=== PATIENT | female | born 1985 | race Caucasian/White ===

== ENCOUNTER 2020-04-26 23:01 | Emergency (ER) | payer BC, SELFPAY ==
[2020-04-26 23:02] VITALS: BP 121/80; PULSE 68; RESP 14; TEMP 36.7; O2SAT 98; BMI 24.0
--- NOTE | 2020-04-26 23:05 | CT_ITS ---
PROCEDURE: CT ANGIO CHEST CLINCIAL INDICATION: Trauma w/ LOC Blunt trauma with injury and pain, contusion/abrasion or hematoma following injury COMPARISON: No exams were available for comparison TECHNIQUE: IV Contrast: 70ML OPTIRAY 350 Axial images obtained with sagittal and coronal reformats. All CT scans at the facility use one or more dose reduction, viz: automated exposure control, ma/kV adjustment per patient size (including targeted exams where dose is matched to indication, i.e. head), or iterative reconstruction technique. FINDINGS: HEART AND MEDIASTINAL STRUCTURES: No mediastinal or hilar mass. No evidence mediastinal hematoma. No evidence of aortic dissection or pseudo aneurysm or aneurysm. LUNGS AND PLEURAL SPACES: Unremarkable. BONY STRUCTURES: No acute bony abnormalities apparent. UPPER ABDOMEN: Unremarkable. ADDITIONAL FINDINGS: No other significant abnormalities. IMPRESSION: No acute finding Dictated by: Rhett Babin MD 04/27/2020 06:38 Rhett Babin MD in [facility] 04/27/2020 06:38
--- NOTE | 2020-04-26 23:05 | CT_ITS ---
PROCEDURE: CT ABDOMEN PELVIS W CON CLINICAL INDICATION: Trauma w/ LOC Blunt trauma with injury and pain, contusion/abrasion or hematoma following injury, right-sided pain COMPARISON: CT CT ABDOMEN PELVIS W CON from 11/18/[address] ANGIO CHEST from 04/26/2020 TECHNIQUE: IV Contrast: 75ML OPTIRAY 350 Oral Contrast None Axial images obtained with sagittal and coronal reformats. All CT scans at the facility use one or more dose reduction, viz: automated exposure control, ma/kV adjustment per patient size (including targeted exams where dose is matched to indication, i.e. head), or iterative reconstruction technique. FINDINGS: LOWER THORAX: No acute finding ABDOMEN & PELVIS: The liver spleen pancreas adrenal glands and kidneys have an unremarkable appearance. No renal or ureteral calculi. No hydronephrosis. No intestinal obstruction or free air. There is mild nonspecific thickening of the distal esophagus. There mild amount retained colonic feces. Minimal amount of fluid noted within the pelvis. Small left ovarian cyst at 13 mm. No acute bony anomaly IMPRESSION: No acute finding Dictated by: Rhett Babin MD 04/27/2020 06:42 Rhett Babin MD in [facility] 04/27/2020 06:42
--- NOTE | 2020-04-26 23:05 | CT_ITS ---
PROCEDURE: CT LUMBAR SPINE WO CON CLINICAL HISTORY: Trauma w/ LOC Back injury with pain, horse fell on patient. Blunt trauma with injury and pain, contusion/abrasion or hematoma following injury COMPARISON: No exams were available for comparison TECHNIQUE: Axial images obtained with sagittal and coronal reformats. All CT scans at the facility use one or more dose reduction, viz: automated exposure control, ma/kV adjustment per patient size (including targeted exams where dose is matched to indication, i.e. head), or iterative reconstruction technique. FINDINGS: Normal alignment. No fracture or dislocation. The disc spaces are well preserved. Mild bulging disc noted at L4-5. Small sclerotic focus is present involving the left and posterior aspect of the L5 vertebral body and the superior endplate of L2 which may be due to bone islands. IMPRESSION: No acute finding Dictated by: Rhett Babin MD 04/27/2020 06:35 Rhett Babin MD in [facility] 04/27/2020 06:35
--- NOTE | 2020-04-26 23:05 | CT_ITS ---
PROCEDURE: CT HEAD/BRAIN WO CON CLINICAL INDICATION: Trauma w/ LOC Head injury with headache/pain, contusion, abrasion or hematoma, loss of consciousness COMPARISON: No exams were available for comparison TECHNIQUE: Axial images obtained. All CT scans at the facility use one or more dose reduction, viz: automated exposure control, ma/kV adjustment per patient size (including targeted exams where dose is matched to indication, i.e. head), or iterative reconstruction technique. FINDINGS: No midline shift, mass effect, intracranial hemorrhage, hydrocephalus, or extra-axial fluid collection is evident. There are few scattered areas of decreased density in the periventricular and sub cortical white matter noted in the left and right parietal occipital region and right parietal area. The calvarium has an unremarkable appearance. No mastoid effusion. No sinus air-fluid level. IMPRESSION: 1. No acute intracranial finding. 2. Scattered small areas of decreased attenuation in the white matter. Differential diagnosis would include ischemic gliotic foci or demyelinating process such as multiple sclerosis. Consider nonemergent MRI further evaluation.. Dictated by: Rhett Babin MD 04/27/2020 06:27 Rhett Babin MD in [facility] 04/27/2020 06:27
--- NOTE | 2020-04-26 23:05 | CT_ITS ---
PROCEDURE: CT THORACIC SPINE WO CON CLINICAL HISTORY: Trauma w/ LOC Back pain following injury COMPARISON: No exams were available for comparison TECHNIQUE: Axial images obtained with sagittal and coronal reformats. All CT scans at the facility use one or more dose reduction, viz: automated exposure control, ma/kV adjustment per patient size (including targeted exams where dose is matched to indication, i.e. head), or iterative reconstruction technique. FINDINGS: Normal alignment. Mild midthoracic curvature convex right. No acute fracture or dislocation. IMPRESSION: No acute finding Dictated by: Rhett Babin MD 04/27/2020 06:32 Rhett Babin MD in [facility] 04/27/2020 06:32
--- NOTE | 2020-04-26 23:05 | XR_ITS ---
PROCEDURE: XR CHEST AP CLINICAL HISTORY: Horse fell on PT Blunt trauma with injury and pain, contusion/abrasion or hematoma following injury COMPARISON: No exams were available for comparison FINDINGS: The cardiomediastinal silhouette and pulmonary vascularity are within normal limits. The lungs are clear without infiltrates, suspicious nodules, or pleural effusions. No acute bony abnormalities. IMPRESSION: No acute findings. Dictated by: Rhett Babin MD 04/27/2020 07:14 Rhett Babin MD in [facility] 04/27/2020 07:14
--- NOTE | 2020-04-26 23:05 | XR_ITS ---
PROCEDURE: XR PELVIS 1-2V CLINICAL INDICATION: Horse Blunt trauma with injury and pain, contusion/abrasion or hematoma following injury, trauma protocol, trauma alert COMPARISON: No exams were available for comparison TECHNIQUE: XR Pelvis AP View FINDINGS: No fracture or dislocation is evident. No significant degenerative change. No lytic or blastic change. IMPRESSION: No acute findings. Dictated by: Rhett Babin MD 04/27/2020 07:15 Rhett Babin MD in [facility] 04/27/2020 07:15
--- NOTE | 2020-04-26 23:05 | CT_ITS ---
PROCEDURE: CT CERVICAL SPINE WO CON CLINICAL INDICATION: Trauma w/ LOC Neck injury with pain, contusion/abrasion or hematoma, cervical sprain/strain the COMPARISON: No exams were available for comparison TECHNIQUE: Axial images obtained with sagittal and coronal reformats. All CT scans at the facility use one or more dose reduction, viz: automated exposure control, ma/kV adjustment per patient size (including targeted exams where dose is matched to indication, i.e. head), or iterative reconstruction technique. Axial spiral CT scanning performed of the cervical spine beginning at the base of the skull and continuing to the upper T-spine. 3-D multiplanar reconstruction with 3-D manipulation of volumetric data set in image rendering was completed by the radiologist and/or technologist with the supervision of the radiologist on independent workstation. FINDINGS: No fracture nor subluxation is evident. Normal prevertebral soft tissues. Facets, neural foramen and vertebral bodies intact and unremarkable. Normal C1/C2 relationships. Apices of lungs are clear with no acute findings. There is minimal ossification of posterior longitudinal ligament at C3-C4. Scattered small nodes are present in the neck. IMPRESSION: No acute finding. Dictated by: Rhett Babin MD 04/27/2020 06:29 Rhett Babin MD in [facility] 04/27/2020 06:29
[2020-04-26 23:13] LABS: Basophils # 0.1 K/mm3 (0-0.2); Basophils % 0.5 % (0.1-2.0); Eosinophils # 0.5 K/mm3 (0.0-0.4); Eosinophils % 3.9 % (0.1-12.0); Hematocrit 41.4 % (37.0-47.0); Hemoglobin 14.1 g/dL (12.2-16.2); Lymphocytes # 3.8 K/mm3 (0.7-4.5); Lymphocytes % 31.6 % (10-50); Mean Corpuscular HGB Conc 33.9 g/dL (31.8-35.4); Mean Corpuscular Hemoglobin 29.2 pg (27.0-31.2); Mean Corpuscular Volume 86.1 fl (81-99); Mean Platelet Volume 9.2 fl (7.4-10.4); Monocytes # 0.5 K/mm3 (0.1-1.0); Monocytes % 4.4 % (1.7-9.3); Neutrophils # 7.2 K/mm3 (1.8-7.8); Neutrophils % 59.7 % (37.0-80.0); Platelet Count 230 K/mm3 (142-424); Red Blood Count 4.81 M/mm3 (4.20-5.40); Red Cell Distribution Width 12.7 % (11.5-17.5)
[2020-04-26 23:17] LABS: Chloride 102 mmol/L (98-107); Sodium 138 mmol/L (136-145)
[2020-04-26 23:19] LABS: Alanine Aminotransferase 20 U/L (12-78); Aspartate Amino Transferase 29 U/L (14-36); Blood Urea Nitrogen 15 mg/dl (7-17); Creatinine Clearance Estimated 115 mL/min (50-200); Estimated Glomerular Filt Rate 96 ml/min (>60); GFR (African American) 117 ML/MIN (>60)
[2020-04-26 23:20] LABS: Albumin Level 4.6 g/dl (3.5-5.0); Albumin/Globulin Ratio 1.3 (1.1-1.8); Alkaline Phosphatase 63 U/L (38-126); Bilirubin,Total 0.6 mg/dl (0.2-1.3); Calcium 9.9 mg/dl (8.4-10.2); Carbon Dioxide 27 mmol/L (22.0-30.0); Globulin 3.5 g/dL (1.3-3.2); Glucose 134 mg/dl (74-100); Total Protein,Serum 8.1 g/dl (6.3-8.2)
--- NOTE | 2020-04-26 23:21 | PC.NURSE ---
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 Pt was undressed and no deformities or bleeding noted, C-Collar placed on pt on arrival. Pt AA&O x 3 PERRL 4mm, no tenderness along spine, S1 S2 audible, Lung sounds CTA throughout, Bowel sounds auscultated and abd non-tender to palpation. No pain to pelvis or extremities, Pt able to move all ext, denies numbness or tingling. Pulses palpable in all 4 ext.
[2020-04-26 23:29] LABS: HCG Qualitative, Serum Negative (Negative)
--- NOTE | 2020-04-26 23:34 | [facility]H.EDTRAUMA ---
ED Disposition Clinical Impression: Trauma Chest wall contusion Qualifiers: Encounter type: initial encounter Laterality: right Qualified Code(s): S20.211A - Contusion of right front wall of thorax, initial encounter Concussion Qualifiers: Encounter type: initial encounter Loss of consciousness presence/duration: with LOC of 30 min or less Qualified Code(s): S06.0X1A - Concussion with loss of consciousness of 30 minutes or less, initial encounter Disposition: Home, Self-Care Condition on Discharge: Good Instructions: DI for Concussion Additional Instructions: fluids and see pcp for follow up Referrals: Provider,Referral, MD [Primary Care Provider] - - Critical Care Critical Care Time: No Attestation: On 04/26/20, the high probability of a clinically significant, sudden or life threatening deterioration of the following system(s) required my full and direct attention, intervention and personal management. The time I documented below is in addition to time spent performing reported procedures but includes the following listed in this critical care notation. Medical Decision Making - Medical Records Medical records reviewed: Yes: I reviewed the patient's medical records. - Aric Inquiry Pt receiving controlled substance: No Vital Signs: 04/26/20 23:02 Temperature 98.1 F Temperature Source Oral Pulse Rate [Right] 68 Respiratory Rate 14 Blood Pressure [Right Arm] 121/80 Blood Pressure Mean [Right Arm] 93 Blood Pressure Source [Right Arm] Manual Cuff/ Auscultation Blood Pressure Position [Right Arm] Supine 02 Sat by Pulse Oximetry 98 Oxygen Delivery Method Room Air - Lab Data Lab results reviewed: Yes: I reviewed the patient's lab results. Lab Results 04/26/20 23:00: WBC 12.0 H, RBC 4.81, Hgb 14.1, Hct 41.4, MCV 86.1, MCH 29.2, MCHC 33.9, RDW 12.7, Plt Count 230, MPV 9.2, Neut % (Auto) 59.7, Lymph % (Auto) 31.6, [place] % (Auto) 4.4, Eos % (Auto) 3.9, Baso % (Auto) 0.5, Neut # (Auto) 7.2, Lymph # (Auto) 3.8, [place] # (Auto) 0.5, Eos # (Auto) 0.5 H, Baso # (Auto) 0.1 04/26/20 23:00: Sodium 138, Potassium 4.0, Chloride 102, Carbon Dioxide 27, Anion Gap 13.0, BUN 15, Creatinine 0.70, Estimated Creat Clear 115, Estimated GFR 96, Est GFR ( Amer) 117, Glucose 134 H, Calcium 9.9, Total Bilirubin 0.6, AST 29, ALT 20, Alkaline Phosphatase 63, Total Protein 8.1, Albumin 4.6, Globulin 3.5 H, Albumin/Globulin Ratio 1.3 04/26/20 23:00: Serum HCG, Qual Negative Result diagrams: 04/26/20 23:00 04/26/20 23:00 Orders (Tests/Meds): ED MEDICATIONS Generic Name Dose Route Start Last Admin Trade Name Freq PRN Reason Stop Dose Admin Sodium Chloride 1,000 mls @ 999 mls/hr 04/26/20 23:15 04/26/20 23:44 Sod Chlor 0.9% 1000ml Bag IV 04/27/20 00:15 999 mls/hr .Q1H1M GEOVANY Administration Discontinued Medications Generic Name Dose Route Start Last Admin Trade Name Freq PRN Reason Stop Dose Admin Ioversol 100 ml 04/27/20 00:12 04/27/20 00:16 Rad-Optiray 350 100ml Vial IV 04/27/20 00:13 100 ml ONCE ONE Administration Protocol Ketorolac Tromethamine 30 mg 04/26/20 23:05 04/26/20 23:44 Toradol 30mg/Ml Vial IV 04/26/20 23:06 30 mg ONCE ONE Administration Ondansetron HCl 4 mg 04/26/20 23:05 04/26/20 23:44 Zofran 4mg/2ml Vial IV 04/26/20 23:06 4 mg ONCE ONE Administration Sodium Chloride 40 ml 04/27/20 00:12 04/27/20 00:16 Rad-Ns 50ml Vial IV 04/27/20 00:13 40 ml ONCE ONE Administration Sodium Chloride 10 ml 04/27/20 00:12 04/27/20 00:16 Rad-Saline Flush 10ml Syringe IV 04/27/20 00:13 10 ml ONCE ONE Administration ORDERS Category Date Time Status CT abdomen pelvis w con Stat Cat Scan 04/26/20 23:[address] angio chest Stat Cat Scan 04/26/20 23:[address] cervical spine wo con Stat Cat Scan 04/26/20 23:[address] head/brain wo con Stat Cat Scan 04/26/20 23:[address] lumbar spine wo con Stat Cat Scan 04/26/20 23:05 Taken
--- NOTE | 2020-04-27 00:19 | PC.NURSE ---
pt back from radiology
--- NOTE | 2020-04-27 00:32 | PC.NURSE ---
C-Collar removed at this time
[2020-04-27 00:52] VITALS: BP 126/67; PULSE 65; RESP 14; TEMP 36.7; O2SAT 99
--- NOTE | 2020-04-27 14:31 | PC.NURSE ---
radiologist read her ct head and wants pt to f/u with MRI , pt has no PCP , I called pt and she wanted to f/u with Dr Layton his number was provided to her she is suppose to call for appt. Also spoke with Dr Layton's office and if she hasnt called by next week they are gonna reach out to her.
[2020-05-16 09:45] LABS: POC Glucose,Bedside 108 (70-110)
== END 2020-04-27 00:55 | disposition home or self-care (01) ==
PROVIDERS: Emergency Provider Emergency Medicine
DX: S20.211A Contusion of right front wall of thorax, initial encounter (principal); S06.0X1A Concussion with loss of consciousness of 30 minutes or less, initial encounter; W55.12XA Struck by horse, initial encounter; Y92.79 Other farm location as the place of occurrence of the external cause
CPT/HCPCS: 70450; 71045; 71275; 72125; 72128; 72131; 72170; 74177; 80053; 82962; 84703; 85025; 96365; 96375; 99281; J2405; Q9967

== ENCOUNTER 2021-05-19 10:52 | Emergency (ER) | payer BC, SELFPAY ==
[2021-05-19 10:53] VITALS: BP 167/85; PULSE 75; RESP 22; TEMP 36.7; O2SAT 98; BMI 24.9
--- NOTE | 2021-05-19 11:04 | HMH.EDGENADL ---
ED Disposition Clinical Impression: Ureteral calculus Disposition: Home, Self-Care Condition on Discharge: Good Instructions: DI for Kidney Stones Additional Instructions: Flomax as prescribed. Percocet as needed for pain. Zofran as needed for nausea. Pump and dump breastmilk while taking above medications and for 24 hours after last dose of medications. Additional instructions for KIDNEY STONE (URETERAL CALCULUS): See Dr. Reese as soon as possible for further evaluation. Drink plenty of fluids. Strain your urine and save any stones you catch. Return immediately if you develop a fever or have uncontrollable vomiting or uncontrollable pain. Additional instructions for CONTROLLED SUBSTANCES: You have been prescribed a medication that is a controlled substance. Controlled substances include pain medications known as opiates and sedative nerve medications known as benzodiazepines. Tramadol, fioricet, and gabapentin are also controlled substances. Some common opiates include: Codeine (such as Tylenol #3) Hydrocodone (Vicodin, Lortab, Lorcet, [place]) Oxycodone (Percocet, Percodan, Oxycodone, Oxy IR) Some common benzodiazepines include: Diazepam (Valium) Lorazepam (Ativan) Alprazolam (Xanax) Clonazepam (Klonopin) Oxazepam (Serax) All of these controlled substances are highly addictive and frequently abused. Misuse can and frequently does lead to addiction as well as overdose and . Medication should be stored in a locked cabinet or other secure storage unit. Do not store the medication in a motor vehicle. Short term supplies, 3 days or less, are prescribed because of the highly addictive nature of the medication. Any of the controlled substance medication NOT taken should be disposed of properly and NOT SAVED. The recommended method of disposing of unused medications is: Place the medicines in a sealable plastic bag. If the medicine is a solid, crush it or add water to dissolve it. Add something undesirable (cat litter, coffee grounds, etc.) Dispose of sealed bag in household trash Do not flush or pour unused medicines down a sink or drain. Controlled substances should not be shared, given away or sold. Because of the addictive nature and frequent abuse, these medications are sometimes stolen. These medications should be kept in a safe place where they cannot be stolen. Do not keep them in your car or purse. Lost or stolen prescriptions for controlled substances WILL NOT BE REFILLED in this emergency department, regardless of whether a police report was filed. Prescriptions: Oxycodone HCl/Acetaminophen [Percocet 5/325mg tablet] 1 tab PO Q6HP PRN #10 tab PRN Reason: Moderate To Severe Pain Transmission Status: Sent to [facility] Tamsulosin HCl [Flomax 0.4mg capsule] 0.4 mg PO HS #10 cap Transmission Status: Pending to [facility] Ondansetron [Zofran 4mg ODT] 4 mg PO TIDP PRN #10 tab PRN Reason: Nausea And Vomiting Transmission Status: Pending to [facility] Referrals: Provider,MD Yoli [Primary Care Provider] - Bernardo Reese MD [Staff Physician] - - Critical Care Critical Care Time: No Attestation: On 05/19/21, the high probability of a clinically significant, sudden or life threatening deterioration of the following system(s) required my full and direct attention, intervention and personal management. The time I documented below is in addition to time spent performing reported procedures but includes the following listed in this critical care notation. Medical Decision Making - Medical Records Medical records reviewed: Yes: I reviewed the patient's medical records. MR Comment: Reviewed emergency department note from 11/18/2019 visit for flank pain and hematuria. CT scan negative. - Aric Inquiry Pt receiving controlled substance: Yes Aric was queried for this patient: Yes Risks and benefits of using a controlled substance: were discu
--- NOTE | 2021-05-19 11:22 | CT_ITS ---
PROCEDURE INFORMATION: Exam: CT Abdomen And Pelvis Without Contrast Exam date and time: 05/19/2021 11:22 AM Age: 36 years old Clinical indication: Abdominal pain; Prior surgery; Surgery date: <1 month; Surgery type: Patient had a baby 2 weeks ago; Patient HX: Left flank pain, history of kidney stones and same kind of pain// no contrast TECHNIQUE: Imaging protocol: Computed tomography of the abdomen and pelvis without contrast. Radiation optimization: All CT scans at this facility use at least one of these dose optimization techniques: automated exposure control; mA and/or kV adjustment per patient size (includes targeted exams where dose is matched to clinical indication); or iterative reconstruction. COMPARISON: CT ABDOMEN PELVIS W CON 04/26/2020 11:54 PM FINDINGS: Liver: No mass. Gallbladder and bile ducts: No calcified stones. No ductal dilation. Pancreas: No ductal dilation. Spleen: No splenomegaly. Adrenal glands: Normal. No mass. Kidneys and ureters: There is a 3 mm calculus in the proximal left ureter with mild upstream hydronephrosis. Stomach and bowel: No obstruction. No mucosal thickening. Appendix: No evidence of appendicitis. Intraperitoneal space: No free air. No significant fluid collection. Vasculature: No abdominal aortic aneurysm. Lymph nodes: No enlarged lymph nodes. Urinary bladder: Unremarkable as visualized. Reproductive: Unremarkable as visualized. Bones/joints: No acute fracture. Soft tissues: Unremarkable. Other findings: Evaluation of solid organs and vasculature is suboptimal lacking intravenous contrast. IMPRESSION: There is a 3 mm calculus in the proximal left ureter with mild upstream hydronephrosis.
[2021-05-19 11:32] LABS: Basophils # 0.1 K/mm3 (0-0.2); Basophils % 1.3 % (0.1-2.0); Eosinophils # 0.6 K/mm3 (0.0-0.4); Eosinophils % 6.4 % (0.1-12.0); Hemoglobin 13.6 g/dL (12.2-16.2); Lymphocytes # 2.6 K/mm3 (0.7-4.5); Mean Corpuscular HGB Conc 31.7 g/dL (31.8-35.4); Mean Corpuscular Hemoglobin 27.8 pg (27.0-31.2); Mean Corpuscular Volume 87.8 fl (81-99); Mean Platelet Volume 8.5 fl (7.4-10.4); Monocytes # 0.3 K/mm3 (0.1-1.0); Monocytes % 3.4 % (1.7-9.3); Neutrophils # 6.2 K/mm3 (1.8-7.8); Platelet Count 382 K/mm3 (142-424); Red Cell Distribution Width 13.5 % (11.5-17.5); White Blood Count 9.9 K/mm3 (4.8-10.8)
[2021-05-19 11:33] LABS: Chloride 105 mmol/L (98-107); Potassium 3.8 mmoL/L (3.5-5.1); Sodium 141 mmol/L (136-145)
[2021-05-19 11:35] LABS: Alanine Aminotransferase 34 U/L (12-78); Aspartate Amino Transferase 37 U/L (14-36); Blood Urea Nitrogen 9 mg/dl (7-17); Creatinine Clearance Estimated 102 mL/min (50-200); Estimated Glomerular Filt Rate 82 ml/min (>60); GFR (African American) 99 ML/MIN (>60)
[2021-05-19 11:36] LABS: Albumin Level 4.1 g/dl (3.5-5.0); Albumin/Globulin Ratio 1.2 (1.1-1.8); Alkaline Phosphatase 124 U/L (38-126); Anion Gap 15.8 mEq/L (5-15); Bilirubin,Total 0.3 mg/dl (0.2-1.3); Calcium 9.2 mg/dl (8.4-10.2); Carbon Dioxide 24 mmol/L (22.0-30.0); Globulin 3.4 g/dL (1.3-3.2); Glucose 102 mg/dl (74-100); Lipase 40 U/L (23-300); Total Protein,Serum 7.5 g/dl (6.3-8.2)
[2021-05-19 11:42] LABS: HCG Qualitative, Serum Negative (Negative)
[2021-05-19 12:00] VITALS: BP 121/80; PULSE 67; RESP 16; O2SAT 98
[2021-05-19 13:55] VITALS: BP 129/91; PULSE 65; RESP 16; TEMP 36.6; O2SAT 98
[2021-05-19 14:06] LABS: Microscopic, Urine URINE MICROSCOPIC (MICROSCOPIC)
[2021-05-19 14:08] LABS: Appearance,Urine SL CLOUDY (Clear); Bilirubin,Urine Negative (Negative); Blood, Urine 3+ (Negative); Color,Urine YELLOW (Yellow); Glucose,Urine (UA) Negative (Negative); Ketones,Urine Negative (Negative); Leukocyte Esterase,Urine TRACE (Negative); Nitrate,Urine Negative (Negative); Protein,Urine TRACE (Negative); Specific Gravity, Urine >= 1.030 (1.005-1.030); Urobilinogen,Urine 0.2 EU/dl (0.2)
[2021-05-19 14:11] LABS: Urine Pregnancy, HCG Qual. Negative (Negative)
[2021-05-19 14:16] LABS: Amorphous Sediment,Urine 1+ /lpf; RBC,Urine 50-100 #/hpf (0-3); Squamous Epithelial Cell,Urine Occasional #/hpf (0-5)
== END 2021-05-19 13:56 | disposition home or self-care (01) ==
PROVIDERS: Emergency Provider Emergency Medicine
DX: N20.1 Calculus of ureter (principal)
CPT/HCPCS: 74176; 80053; 81001; 81025; 83690; 84703; 85025; 96365; 96375; 96376; 99283; J2405

== ENCOUNTER 2021-05-22 01:04 | Emergency (ER) | payer BC, SELFPAY ==
[2021-05-22 01:05] VITALS: BP 180/85; PULSE 76; RESP 16; TEMP 36.8; O2SAT 96; BMI 22.3
[2021-05-22 01:40] VITALS: BMI 32.9
--- NOTE | 2021-05-22 01:40 | CT_ITS ---
PROCEDURE INFORMATION: Exam: CT Abdomen And Pelvis Without Contrast Exam date and time: 05/22/2021 1:40 AM Age: 36 years old Clinical indication: Nausea and vomiting; Abdominal pain; Flank; Left; Additional info: Known 3mm L ureteral stone, pain n/v worsened TECHNIQUE: Imaging protocol: Computed tomography of the abdomen and pelvis without contrast. Radiation optimization: All CT scans at this facility use at least one of these dose optimization techniques: automated exposure control; mA and/or kV adjustment per patient size (includes targeted exams where dose is matched to clinical indication); or iterative reconstruction. COMPARISON: CT ABDOMEN PELVIS WO CON 05/19/2021 11:51 AM FINDINGS: Liver: Normal. No mass. Gallbladder and bile ducts: Normal. No calcified stones. No ductal dilation. Pancreas: Normal. No ductal dilation. Spleen: Normal. No splenomegaly. Adrenal glands: Normal. No mass. Kidneys and ureters: There are nonobstructing calculi in both kidneys. The previously seen left UPJ stone has moved down to the left UVJ and now causes moderate hydroureteronephrosis. Stomach and bowel: Unremarkable. No obstruction. No mucosal thickening. Appendix: No evidence of appendicitis. Intraperitoneal space: Unremarkable. No free air. No significant fluid collection. Vasculature: Unremarkable. No abdominal aortic aneurysm. Lymph nodes: Scattered mesenteric, para-aortic and aortocaval lymph nodes, measuring up to 1.5 cm are most likely reactive. Urinary bladder: Unremarkable as visualized. Reproductive: Unremarkable as visualized. Bones/joints: Unremarkable. No acute fracture. Soft tissues: Unremarkable. IMPRESSION: Left UVJ stone with moderate hydroureteronephrosis. Bilateral nonobstructing renal calculi.
[2021-05-22 01:48] LABS: Microscopic, Urine URINE MICROSCOPIC (MICROSCOPIC)
[2021-05-22 01:51] LABS: Appearance,Urine CLEAR (Clear); Basophils # 0.1 K/mm3 (0-0.2); Basophils % 0.9 % (0.1-2.0); Bilirubin,Urine Negative (Negative); Blood, Urine 3+ (Negative); Color,Urine YELLOW (Yellow); Eosinophils # 0.6 K/mm3 (0.0-0.4); Glucose,Urine (UA) Negative (Negative); Hematocrit 36.8 % (37.0-47.0); Hemoglobin 12.1 g/dL (12.2-16.2); Ketones,Urine Negative (Negative); Leukocyte Esterase,Urine 2+ (Negative); Lymphocytes # 3.6 K/mm3 (0.7-4.5); Lymphocytes % 31.6 % (10-50); Mean Corpuscular Hemoglobin 29.1 pg (27.0-31.2); Mean Corpuscular Volume 88.2 fl (81-99); Mean Platelet Volume 9.1 fl (7.4-10.4); Monocytes # 0.4 K/mm3 (0.1-1.0); Monocytes % 3.4 % (1.7-9.3); Neutrophils # 6.8 K/mm3 (1.8-7.8); Neutrophils % 59.1 % (37.0-80.0); Nitrate,Urine Negative (Negative); PH,Urine 6.5 (5.0-8.5); Platelet Count 295 K/mm3 (142-424); Protein,Urine Negative (Negative); Red Blood Count 4.18 M/mm3 (4.20-5.40); Red Cell Distribution Width 13.5 % (11.5-17.5); Urobilinogen,Urine 0.2 EU/dl (0.2); White Blood Count 11.5 K/mm3 (4.8-10.8)
[2021-05-22 01:53] LABS: Urine Pregnancy, HCG Qual. Negative (Negative)
[2021-05-22 02:04] LABS: Bacteria,Urine 1+ /lpf
[2021-05-22 02:32] LABS: Erythrocyte Sedimentation Rate 27 mm/hr (0-20)
--- NOTE | 2021-05-22 02:42 | HMH.EDNVD ---
ED Disposition Clinical Impression: Renal colic on left side UTI (urinary tract infection) Qualifiers: Urinary tract infection type: site unspecified Hematuria presence: without hematuria Qualified Code(s): N39.0 - Urinary tract infection, site not specified Disposition: Home, Self-Care Condition on Discharge: Good Instructions: DI for Kidney Stones Additional Instructions: fluids and see pcp for follow up Prescriptions: levoFLOXacin [Levaquin 500mg tab] 500 mg PO DAILY #7 tab Transmission Status: Pending to [facility] Referrals: Gamaliel Broderick APRN [Primary Care Provider] - - Critical Care Critical Care Time: No Attestation: On 05/22/21, the high probability of a clinically significant, sudden or life threatening deterioration of the following system(s) required my full and direct attention, intervention and personal management. The time I documented below is in addition to time spent performing reported procedures but includes the following listed in this critical care notation. Medical Decision Making - Medical Records Medical records reviewed: Yes: I reviewed the patient's medical records. - Aric Inquiry Pt receiving controlled substance: No Vital Signs: 05/22/21 01:05 Temperature 98.2 F Temperature Source Oral Pulse Rate [Right] 76 Respiratory Rate 16 Blood Pressure [Right Arm] 180/85 H Blood Pressure Mean [Right Arm] 116 02 Sat by Pulse Oximetry 96 - Lab Data Lab results reviewed: Yes: I reviewed the patient's lab results. Lab Results 05/22/21 01:40: WBC 11.5 H, RBC 4.18 L, Hgb 12.1 L, Hct 36.8 L, MCV 88.2, MCH 29.1, MCHC 33.0, RDW 13.5, Plt Count 295, MPV 9.1, Neut % (Auto) 59.1, Lymph % (Auto) 31.6, [place] % (Auto) 3.4, Eos % (Auto) 5.0, Baso % (Auto) 0.9, Neut # (Auto) 6.8, Lymph # (Auto) 3.6, [place] # (Auto) 0.4, Eos # (Auto) 0.6 H, Baso # (Auto) 0.1, ESR 27 H 05/22/21 01:40: Sodium 139, Potassium 3.5, Chloride 104, Carbon Dioxide 24, Anion Gap 14.5, BUN 14 D, Creatinine 0.80, Estimated Creat Clear 127, Estimated GFR 82, Est GFR ( Amer) 99, Glucose 107 H, Calcium 8.6, Total Bilirubin 0.2, AST 30, ALT 26, Alkaline Phosphatase 102, C-Reactive Protein 1.6, Total Protein 6.9, Albumin 3.6, Globulin 3.3 H, Albumin/Globulin Ratio 1.1, Amylase 121 H, Lipase 43, Procalcitonin 0.041 05/22/21 01:40: Urine Color Yellow, Urine Appearance Clear, Urine pH 6.5, Ur Specific [place] 1.020, Urine Protein Negative, Urine Glucose (UA) Negative, Urine Ketones Negative, Urine Blood 3+, Urine Nitrate Negative, Urine Bilirubin Negative, Urine Urobilinogen 0.2, Ur Leukocyte Esterase 2+ A, Urine RBC 3-5, Urine WBC 3-5, Ur Squamous Epith Cells 3-5, Urine Bacteria 1+ 05/22/21 01:40: Urine HCG, Qual Negative Result diagrams: 05/22/21 01:40 05/22/21 01:40 Orders (Tests/Meds): ED MEDICATIONS Generic Name Dose Route Start Last Admin Trade Name Freq PRN Reason Stop Dose Admin Lactated Ringer's 1,000 mls @ 999 mls/hr 05/22/21 01:45 05/22/21 01:53 Lactated Ringer's 1000 Ml Bag IV 05/22/21 02:45 999 mls/hr .Q1H1M GEOVANY Administration Sodium Chloride 1,000 mls @ 999 mls/hr 05/22/21 02:45 05/22/21 03:00 Sod Chlor 0.9% 1000ml Bag IV 05/22/21 03:45 999 mls/hr .Q1H1M GEOVANY Administration Ceftriaxone Sodium 1 gm/ 50 mls @ 100 mls/hr 05/22/21 02:45 05/22/21 03:29 Sodium Chloride IV 06/05/21 02:44 100 mls/hr Q24H GEOVANY Administration Discontinued Medications Generic Name Dose Route Start Last Admin Trade Name Freq PRN Reason Stop Dose Admin Hydromorphone HCl 1 mg 05/22/21 03:28 05/22/21 03:15 Hydromorphone 2mg/Ml Syringe IV 05/22/21 03:29 1 mg ONCE ONE Administration Ketorolac Tromethamine 30 mg 05/22/21 01:44 05/22/21 01:53 Ketorolac 30mg/Ml Vial IV 05/22/21 01:45 30 mg ONCE ONE Administration Ondansetron HCl 4 mg 05/22/21 01:44 05/22/21 01:53 Ondansetron 4mg/2ml Vial IV 05/22/21 01:45 4 mg ONCE ONE Administration Promethazine HCl
[2021-05-22 03:23] LABS: Alanine Aminotransferase 26 U/L (12-78); Albumin Level 3.6 g/dl (3.5-5.0); Albumin/Globulin Ratio 1.1 (1.1-1.8); Alkaline Phosphatase 102 U/L (38-126); Amylase 121 U/L (30-110); Anion Gap 14.5 mEq/L (5-15); Aspartate Amino Transferase 30 U/L (14-36); Bilirubin,Total 0.2 mg/dl (0.2-1.3); Blood Urea Nitrogen 14 mg/dl (7-17); Calcium 8.6 mg/dl (8.4-10.2); Carbon Dioxide 24 mmol/L (22.0-30.0); Chloride 104 mmol/L (98-107); Creatinine Clearance Estimated 127 mL/min (50-200); Estimated Glomerular Filt Rate 82 ml/min (>60); GFR (African American) 99 ML/MIN (>60); Globulin 3.3 g/dL (1.3-3.2); Glucose 107 mg/dl (74-100); Lipase 43 U/L (23-300); Potassium 3.5 mmoL/L (3.5-5.1); Sodium 139 mmol/L (136-145); Total Protein,Serum 6.9 g/dl (6.3-8.2)
[2021-05-22 03:29] LABS: C-Reactive Protein 1.6 mg/L (0-4)
[2021-05-22 03:43] LABS: Procalcitonin 0.041 ng/mL (0.0-2.0)
[2021-05-22 03:53] VITALS: BP 126/75; PULSE 72; RESP 16; TEMP 36.7; O2SAT 99
== END 2021-05-22 04:15 | disposition home or self-care (01) ==
PROVIDERS: Emergency Provider Emergency Medicine; PCP Nurse Practitioner
DX: N30.00 Acute cystitis without hematuria (principal)
CPT/HCPCS: 74176; 80053; 81001; 81025; 82150; 83690; 84145; 85025; 85651; 86140; 87086; 96365; 96367; 96375; 99283; J2405

== ENCOUNTER → 2021-05-23 11:14 | Outpatient (CLI) | payer BC, SELFPAY ==
--- NOTE | 2021-05-23 11:19 | XR_ITS ---
PROCEDURE: XR KUB CLINICAL INDICATION: kidney stone Left-sided flank pain COMPARISON: CT CT ABDOMEN PELVIS WO CON from 05/22/2021 FINDINGS: There are 2 calcific densities in the left mid pelvic region 1 which is felt to be due to phleboliths and the other due to a distal ureteral calculus at 3 mm. There is a moderate amount of retained colonic feces. IMPRESSION: Suspect residual 3 mm left ureteropelvic junction stone Dictated by: Rhett Babin MD 05/23/2021 13:43 Rhett Babin MD in [place] 05/23/2021 13:43
== END ==
PROVIDERS: Visit Provider Urology
DX: N20.0 Calculus of kidney (principal)
CPT/HCPCS: 74018

== ENCOUNTER → 2021-05-24 14:32 | Outpatient (CLI) | payer BC, SELFPAY | PROVIDERS: Visit Provider Urology | DX: Z01.812 Encounter for preprocedural laboratory examination (principal); Z20.822 Contact with and (suspected) exposure to COVID-19; N20.1 Calculus of ureter | CPT/HCPCS: C9803; U0003; U0005 ==

== ENCOUNTER 2021-05-27 06:01 | Day surgery (SDC) | payer BC, SELFPAY ==
[2021-05-24 13:08] VITALS: BMI 27.8
[2021-05-27] VITALS (9 sets, daily range): BP systolic 120–156; BP diastolic 69–96; PULSE 51–68; RESP 16–18; TEMP 36.2–36.3; O2SAT 97–100
--- NOTE | 2021-05-27 08:17 | HMH.ANESCL ---
[facility] Anesthesia Checklist - Patient Identification Patient Identification: Arm Band - Structural Data Planned Operative Procedure/s: Left Ureteroscopy Consent for Planned Operative Procedure(s) Verified: Yes Verified Documents: Surgical Consent - NPO Status Verified Time NPO: 00:00 - Additional verifications Anesthesia Reactions: No Hx Blood Transfusions: No Blood Transfusion Reaction: No - Cardiovascular Assessment Heart Sounds: S1 & S2 Pulse Rhythm: Regular - Airway Assessment C-Spine Mobility Assessed: Yes TMJ Mobility Assessed: Yes Dentition: Good Dentition - Neurological Assessment Level of Consciousness: Awake, Alert, Appropriate - Anesthesia Plan ASA Class: II Anesthesia Type: General [facility] History Medical History: Reports:: Kidney Stones, Urinary Tract Infection Denies:: Cancer, Diabetes Mellitus Type 2, MRSA, Seizures *Have you ever received a pneumonia vaccine?: No *Have you received a flu vaccine this season?: No Other Medical History: Denies: Blood Transfusion Reaction Anesthesia experience/problems:: none before Other Surgeries: Yes: No Previous Surgery Amputation: No Fractures: No - *Social History Last grade of school completed: Some college Smoking Status: Never smoker Alcohol Intake: never Substance Use Type: denies use *Occupational Status:: unemployed Housing: house Household Members: spouse, children *Travel in the last 8 weeks: None Family Hx:: Coronary Artery Disease
--- NOTE | 2021-05-27 08:56 | XR_ITS ---
PROCEDURE: XR KUB CLINICAL INDICATION: STENT PLACEEMENT IN OR COMPARISON: CT CT ABDOMEN PELVIS WO CON from 05/22/2021 CR XR KUB from 05/23/2021 FINDINGS: And 41 seconds. Single image submitted with the C-arm demonstrates a left ureteral stent in place with the proximal tip overlying the left upper quadrant. IMPRESSION: Status post stent placement with C-arm assistance Dictated by: Rhett Babin MD 05/27/2021 12:15 Rhett Babin MD in [place] 05/27/2021 12:15
--- NOTE | 2021-05-27 09:17 | HMH.ANESI ---
[facility] Anesthesia Record Part I Intake, IV Amount: 500 Estimated blood loss (mL): 5 Urine output (mL): 0 Blood Products used (#): none Blood Pressure: 120/74 SaO2: 99 Pulse Rate: 51 Respiratory Rate: 16 Temperature: 97.4 F Patient is:: Drowsy
--- NOTE | 2021-05-27 09:50 | P.PN_ITS ---
[facility] Anesthesia Record Part II Discharge Time: 09:10 Destination: Home PACU nurse assessment reviewed?: Yes Patient Condition:: Good Anesthesia Complications:: None Swallowing reflex intact?: Yes Cyanosis?: No Blood Pressure: 146/86 Pulse Rate: 52 Temperature: 97.2 F Mental Status: Alert & Oriented Pain level:: 0 Nausea and/or vomitting:: None Intake, IV Amount: 0
--- NOTE | 2021-05-27 10:33 | SUR.PHASEII ---
instructed pt to pump and dump for 24 hours as per anesthesia
--- NOTE | 2021-05-27 12:50 | HMH.OPNOTE ---
Date of procedure: 05/27/21 Pre-op Diagnosis:: Left ureteral stone with obstruction Post-op Diagnosis:: Same Procedure performed:: Left ureteroscopy stone extraction and left stent placement Surgeon:: Bernardo Reese MD [employer] SERVICER:: Other (wendi tan) Anesthesia: LMA Estimated blood loss (mL): 0 Clinical Note:: 36-year-old white female with recent left renal colic noted to have a small proximal ureteral stone that passed to the distal ureteral stone as of last week. She presents today for urologic management. Operative findings:: Small stone in the distal ureter with associated ureteral edema Operative note:: Patient taken to the operating room after informed consent was obtained. She was placed on the operating table in the supine position and general anesthesia administered. Preoperative antibiotics and sequential compression devices placed. She was then placed into the dorsal lithotomy position and prepped and draped in the standard surgical fashion. The 22 [place] cystoscope passed into the urethra and passed into the bladder without difficulty. The bladder was examined in a systematic fashion and there is no evidence of abnormalities. The ureteral orifices in their normal anatomic position. The guidewire was passed into the left ureteral orifice and there was immediate decompression with a lot of dark urine protruding from the left ureteral orifice. The wire was passed into the renal pelvis and the cystoscope removed. Our semirigid ureteroscope then passed into the bladder and into the left ureter stone was noted to be in the edematous portion of the distal ureter we were able to use the 1.9 [place] stone basket to grasp the stone and it was brought out without difficulty. Our scope was repassed and no evidence of other stones however there was significant ureteral edema present and the stent was deemed necessary. The ureteroscope was removed and our cystoscope was replaced and backloaded over the wire. A 4.8 x 24 [place] stent was then passed over the guidewire and under fluoroscopy the wire removed. A good curl was noted proximally and distally. String was left on for later removal. Urojet placed into the urethra and patient tolerated procedure well no complications. Condition: stable Disposition: PACU Specimens:: Stone Complications:: None
--- NOTE | 2021-05-27 15:45 | SUR.PHASEI ---
[id number]-report received from Roberth LUCAS & Lisbeth BURR. Pt is sleeping with oral airway in place. A stent with string is noted. Pt is 3 weeks post . Marysol pad noted with scant bleeding. VSS. 0845-Oral airway removed per pt. pt talking but drifting off and on to sleep. VSS. 0910-Detailed report given to Richard BURR. VSS.
[2021-06-01 17:13] LABS: Specimen Type Left Ureter
[2021-06-01 17:14] LABS: Ca oxalate dihydrate 100
== END 2021-05-27 09:40 | disposition home or self-care (01) ==
LOC: OR 06:08
PROVIDERS: Visit Provider Urology
PROC: (CPT 52352; principal; 2021-05-27 07:30)
DX: Z87.440 Personal history of urinary (tract) infections (principal); Z79.899 Other long term (current) drug therapy; N20.1 Calculus of ureter
CPT/HCPCS: 52352; 74018; 76000; 82370; 96374; C2617; J2405